=== PATIENT | male | born 1980 | race African-American/Black ===

== ENCOUNTER 2021-11-21 15:42 | Emergency (ER) | payer MEDICAID, MEDICARE ==
[2021-11-21] MEDS ORDERED: traMADol HCl 50 MG TAB ONE (16:07)
[2021-11-21] MEDS ORDERED: Diazepam 2 MG TAB PO SCH (16:30)
[2021-11-21 17:05] LABS: #Basophils 0.1 thou/uL (0.0-0.2); #Eosinphils 0.5 thou/uL (0.0-0.7); #Lymphocytes 1.9 thou/uL (1.20-3.40); #Monocytes 0.7 thou/uL (0.11-0.59); #Neutrophils 7.2 thou/uL (1.40-6.50); %Basophils 0.9 % (0.0-1.0); %Eosinophils 4.7 % (0.0-10.0); %Lymphocytes 18.2 % (21.0-51.0); %Monocytes 6.9 % (0.0-10.0); %Neutrophils 69.3 % (42.0-75.0); Mean Corpuscular HGB CONC 31.8 g/dL (32.0-36.0); Mean Corpuscular Hemoglobin 28.1 pg (27.0-31.0); Mean Corpuscular Volume 88.1 fL (78.0-98.0); Mean Platelet Volume 9.7 fL (7.4-10.4); Platelet Count 158 thou/uL (130-400); RBC Distribution Width 13.5 % (11.5-14.5); Red Blood Cell (RBC) Count 5.33 mill/uL (4.70-6.10); White Blood Cell (WBC) Count 10.4 thou/uL (4.8-10.8)
[2021-11-21 17:25] LABS: ALT (SGPT) 30 U/L (8-55); AST (SGOT) 29 U/L (5-34); Albumin 4.2 g/dL (3.5-5.0); Alkaline Phosphatase 83 U/L (40-110); BUN (Urea Nitrogen) 33 mg/dL (8.9-20.6); Bilirubin, Total 0.8 mg/dL (0.2-1.2); Calc. Creatinine Clearance 0 mL/min (70-130); Calcium 9.4 mg/dL (7.8-10.44); Glucose 136 mg/dL (70-105); Protein, Total 7.2 g/dL (6.0-8.3)
[2021-11-21 17:34] LABS: Anion Gap 20 mmol/L (10-20); Carbon Dioxide 34 mmol/L (22-29); Chloride 87 mmol/L (98-107); Potassium 3.4 mmol/L (3.5-5.1); Sodium 138 mmol/L (136-145)
[2021-11-21 17:58] LABS: CKMB 2.3 ng/mL (0-6.6)
[2021-11-21] MEDS ORDERED: Aspirin Chewable 81 MG TAB ONE (17:59)
[2021-11-21] MEDS ORDERED: Carvedilol 6.25 MG TAB PO SCH (18:30)
== END 2021-11-21 20:00 | disposition home or self-care (01) ==
LOC: ERS 15:42
DX: I11.0 Hypertensive heart disease with heart failure (principal); I50.9 Heart failure, unspecified; M25.512 Pain in left shoulder; Z79.899 Other long term (current) drug therapy
CPT/HCPCS: 36415; 80053; 82553; 84484; 85025; 93005